=== PATIENT | male | born 1955 | race Caucasian/White ===

== ENCOUNTER 2022-01-09 11:43 | Inpatient (IN) | payer MEDICARE ==
[~2022-01-09] VITALS: Ht 177.8 cm; Wt 76.0 kg
[2022-01-09 12:50] LABS: BASOPHIL 0.6 % (0-2); EOSINOPHIL 1.1 % (0-7); HCT 29.4 % (42.0-52.0); HGB 9.2 g/dl (13.2-18.0); LYMPHOCYTE 23.3 % (15-48); MCH 28.7 pg (25.0-31.0); MCHC 31.3 g/dL (32.0-36.0); MCV 91.6 fL (78.0-100.0); MONOCYTE 10.8 % (0-12); MPV 9.6 fL (6.0-9.5); NRBC 0; PLT 276 K/uL (150-400); RBC 3.21 M/uL (4.70-6.00); RDW 14.6 % (11.5-14.0); WBC 8.2 K/uL (4.0-10.5)
[2022-01-09 13:23] LABS: ALBUMIN 2.8 g/dL (3.4-5.0); BILIRUBIN - TOTAL 0.3 mg/dL (0.2-1.0); BUN/CREAT RATIO (CALC) 29.3 RATIO; CREATININE 0.58 mg/dL (0.67-1.17); FT4 (FREE T4) 1.4 ng/dL (0.76-1.46); GLOBULIN (CALCULATION) 3.7 g/dL; POTASSIUM 3.3 mmol/L (3.5-5.1); TOTAL PROTEIN 6.5 g/dL (6.4-8.2)
[2022-01-09 22:18] LABS: LACTIC ACID 1.8 mmol/L (0.4-1.9)
[2022-01-10] MEDS ORDERED: MONTELUKAST SOD10 MG PO (02:17)
[2022-01-10] MEDS ORDERED: ATORVASTATIN CA20 MG PO (02:17)
[2022-01-10] MEDS ORDERED: CITALOPRAM HBR40 MG PO (02:18)
[2022-01-10] MEDS ORDERED: COZAAR100 MG PO (02:19)
[2022-01-10] MEDS ORDERED: METOPROLOL SUC100 MG PO (02:20)
[2022-01-10] MEDS ORDERED: ENOXAPARIN80 MG/0.8 SC (02:21)
[2022-01-10] MEDS ORDERED: METOPROLOL SUCC25 MG PO (02:23)
[2022-01-10] MEDS ORDERED: MAG-OXIDE 400M400 MG PO (02:25)
[2022-01-10 06:08] LABS: BASOPHIL 0.5 % (0-2); EOSINOPHIL 2.4 % (0-7); HCT 28.4 % (42.0-52.0); HGB 8.9 g/dl (13.2-18.0); LYMPHOCYTE 25.8 % (15-48); MCH 29.1 pg (25.0-31.0); MCHC 31.3 g/dL (32.0-36.0); MCV 92.8 fL (78.0-100.0); MONOCYTE 9.5 % (0-12); MPV 8.8 fL (6.0-9.5); NEUTROPHIL 61.5 % (41-80); NRBC 0; PLT 264 K/uL (150-400); RBC 3.06 M/uL (4.70-6.00); RDW 14.5 % (11.5-14.0); WBC 7.5 K/uL (4.0-10.5)
[2022-01-10 06:14] LABS: RETICULOCYTE COUNT 1.9 % (1.0-2.0)
[2022-01-10 06:20] LABS: INR 3.07 (0.9-1.2); PROTHROMBIN TIME 30.7 SECONDS (11.8-13.4)
[2022-01-10 06:27] LABS: IRON % SATURATION 10.2 %SAT (20-50)
[2022-01-10 06:34] LABS: BUN/CREAT RATIO (CALC) 21.7 RATIO; CREATININE 0.6 mg/dL (0.67-1.17); POTASSIUM 3.4 mmol/L (3.5-5.1)
[2022-01-11 03:35] LABS: BASOPHIL 0.7 % (0-2); EOSINOPHIL 3.4 % (0-7); HCT 29.2 % (42.0-52.0); HGB 9.2 g/dl (13.2-18.0); LYMPHOCYTE 28.8 % (15-48); MCH 29.4 pg (25.0-31.0); MCHC 31.5 g/dL (32.0-36.0); MCV 93.3 fL (78.0-100.0); MONOCYTE 10.7 % (0-12); MPV 9.2 fL (6.0-9.5); NEUTROPHIL 56.3 % (41-80); NRBC 0; PLT 280 K/uL (150-400); RBC 3.13 M/uL (4.70-6.00); RDW 14.5 % (11.5-14.0); WBC 6.8 K/uL (4.0-10.5)
[2022-01-11 04:15] LABS: ALBUMIN 2.6 g/dL (3.4-5.0); BILIRUBIN - TOTAL 0.3 mg/dL (0.2-1.0); BUN/CREAT RATIO (CALC) 20.6 RATIO; CREATININE 0.68 mg/dL (0.67-1.17); GLOBULIN (CALCULATION) 3.7 g/dL; MAGNESIUM 1.9 mg/dL (1.8-2.4); POTASSIUM 3.8 mmol/L (3.5-5.1); TOTAL PROTEIN 6.3 g/dL (6.4-8.2)
[2022-01-11 09:49] LABS: INR 2.65 (0.9-1.2); PROTHROMBIN TIME 27.3 SECONDS (11.8-13.4)
[2022-01-11] MEDS ORDERED: BAYER CHEWABLE81 MG PO (17:11)
[2022-01-11] MEDS ORDERED: MAG-OXIDE 400M400 MG PO (17:12)
[2022-01-12 06:18] LABS: BASOPHIL 0.7 % (0-2); HGB 9.1 g/dl (13.2-18.0); LYMPHOCYTE 32.9 % (15-48); MCH 28.9 pg (25.0-31.0); MCHC 31.4 g/dL (32.0-36.0); MCV 92.1 fL (78.0-100.0); MONOCYTE 8.8 % (0-12); MPV 9.6 fL (6.0-9.5); NEUTROPHIL 54.2 % (41-80); NRBC 0; PLT 282 K/uL (150-400); RBC 3.15 M/uL (4.70-6.00); RDW 14.5 % (11.5-14.0); WBC 7.2 K/uL (4.0-10.5)
[2022-01-12 06:28] LABS: INR 2.61 (0.9-1.2)
[2022-01-12 06:54] LABS: BUN/CREAT RATIO (CALC) 17.9 RATIO; C-REACTIVE PROTEIN 4.6 mg/dL (<=0.90); CREATININE 0.67 mg/dL (0.67-1.17); MAGNESIUM 1.7 mg/dL (1.8-2.4); POTASSIUM 3.7 mmol/L (3.5-5.1)
[2022-01-13 06:58] LABS: INR 2.26 (0.9-1.2); PROTHROMBIN TIME 24.1 SECONDS (11.8-13.4)
[2022-01-13] MEDS ORDERED: FUROSEMIDE 20MG20 MG PO (17:24)
[2022-01-13] MEDS ORDERED: KLOR-CON 1010 MEQ PO (17:24)
[2022-01-13] MEDS ORDERED: WARFARIN SODIUM5 MG PO (17:24)
[2022-01-13] MEDS ORDERED: PANTOPRAZOLE SO40 MG PO (17:24)
[2022-01-13] MEDS ORDERED: POLY-IRON150 MG PO (17:24)
[2022-01-13] MEDS ORDERED: SINGULAIR10 MG PO (17:28)
[2022-01-13] MEDS ORDERED: ACETAMINOPHEN500 M1 PO (17:28)
[2022-01-13] MEDS ORDERED: TOPROL XL 50 MG50 MG PO (17:28)
[2022-01-15 06:34] LABS: BASOPHIL 0.6 % (0-2); EOSINOPHIL 4.8 % (0-7); HCT 29.6 % (42.0-52.0); HGB 9.3 g/dl (13.2-18.0); LYMPHOCYTE 31.6 % (15-48); MCH 28.9 pg (25.0-31.0); MCHC 31.4 g/dL (32.0-36.0); MCV 91.9 fL (78.0-100.0); MONOCYTE 8.1 % (0-12); MPV 9.5 fL (6.0-9.5); NEUTROPHIL 54.5 % (41-80); NRBC 0; PLT 277 K/uL (150-400); RBC 3.22 M/uL (4.70-6.00); RDW 14.4 % (11.5-14.0); WBC 7.8 K/uL (4.0-10.5)
[2022-01-15 06:46] LABS: INR 3.07 (0.9-1.2); PROTHROMBIN TIME 30.7 SECONDS (11.8-13.4)
[2022-01-15 13:20] LABS: BUN/CREAT RATIO (CALC) 19.2 RATIO; C-REACTIVE PROTEIN 1.7 mg/dL (<=0.90); CREATININE 0.78 mg/dL (0.67-1.17)
[2022-01-15] MEDS ORDERED: BACTRIM DS TAB1 EACH PO (14:48)
[2022-01-15] MEDS ORDERED: WARFARIN SODIUM4 MG PO (15:59)
== END 2022-01-15 17:40 | DRG 280 ==
LOC: FER 11:43 → FICU 01-10 00:06 → FTCU 01-10 00:06 → FICU 01-10 00:55 → FTCU 01-10 16:59
PROVIDERS: Emergency Medicine; Family Medicine; Internal Medicine; Internal Medicine Cardiovascular Disease; Nurse Practitioner Acute Care; ADMIT Internal Medicine
DX: I48.91 Unspecified atrial fibrillation (principal); I21.A1 Myocardial infarction type 2; G93.41 Metabolic encephalopathy; I50.33 Acute on chronic diastolic (congestive) heart failure; E44.0 Moderate protein-calorie malnutrition; D62 Acute posthemorrhagic anemia; T87.44 Infection of amputation stump, left lower extremity; Z20.822 Contact with and (suspected) exposure to COVID-19; E87.6 Hypokalemia; Z68.24 Body mass index [BMI] 24.0-24.9, adult; D50.9 Iron deficiency anemia, unspecified; R44.1 Visual hallucinations; R94.31 Abnormal electrocardiogram [ECG] [EKG]; F32.9 Major depressive disorder, single episode, unspecified; I34.0 Nonrheumatic mitral (valve) insufficiency; E78.5 Hyperlipidemia, unspecified; G47.33 Obstructive sleep apnea (adult) (pediatric); I25.10 Atherosclerotic heart disease of native coronary artery without angina pectoris; Z99.3 Dependence on wheelchair; Y83.5 Amputation of limb(s) as the cause of abnormal reaction of the patient, or of later complication, without mention of misadventure at the time of the procedure; Z88.5 Allergy status to narcotic agent; Z79.82 Long term (current) use of aspirin; Z79.899 Other long term (current) drug therapy
CPT/HCPCS: 36415; 71045; 80048; 80053; 82728; 83540; 83550; 83605; 83735; 83880; 84145; 84439; 84443; 84484; 85025; 85379; 85610; 86140; 87040; 93005; 93971; 94010; 94760; 94762; J1170; J2916; J3370; J7050; U0002

== ENCOUNTER 2022-02-10 18:14 | Emergency (ER) | payer MEDICARE ==
[~2022-02-10] VITALS: Ht 177.8 cm; Wt 71.2 kg
[~2022-02-10 18:14] MED LIST: ACETAMINOPHEN500 M1 PO; ATORVASTATIN CA20 MG PO; BACTRIM DS TAB1 EACH PO; BAYER CHEWABLE81 MG PO; CITALOPRAM HBR40 MG PO; COZAAR100 MG PO; ENOXAPARIN80 MG/0.8 SC; FUROSEMIDE 20MG20 MG PO; KLOR-CON 1010 MEQ PO; MAG-OXIDE 400M400 MG PO; METOPROLOL SUC100 MG PO; METOPROLOL SUCC25 MG PO; MONTELUKAST SOD10 MG PO; PANTOPRAZOLE SO40 MG PO; POLY-IRON150 MG PO; SINGULAIR10 MG PO; TOPROL XL 50 MG50 MG PO; WARFARIN SODIUM4 MG PO; WARFARIN SODIUM5 MG PO
[2022-02-10 19:09] LABS: BASOPHIL 0.4 % (0-2); EOSINOPHIL 3.6 % (0-7); HCT 31.9 % (42.0-52.0); HGB 10.3 g/dl (13.2-18.0); LYMPHOCYTE 26.6 % (15-48); MCH 29.2 pg (25.0-31.0); MCHC 32.3 g/dL (32.0-36.0); MCV 90.4 fL (78.0-100.0); MONOCYTE 9.9 % (0-12); MPV 9.3 fL (6.0-9.5); NEUTROPHIL 58.6 % (41-80); NRBC 0; PLT 204 K/uL (150-400); RBC 3.53 M/uL (4.70-6.00); RDW 14.5 % (11.5-14.0)
[2022-02-10 19:30] LABS: ALBUMIN 3.2 g/dL (3.4-5.0); BILIRUBIN - TOTAL 0.5 mg/dL (0.2-1.0); BUN/CREAT RATIO (CALC) 25.8 RATIO; CREATININE 0.62 mg/dL (0.67-1.17); POTASSIUM 4.4 mmol/L (3.5-5.1); TOTAL PROTEIN 6.2 g/dL (6.4-8.2)
[2022-02-11 01:04] LABS: BILIRUBIN NEGATIVE (NEGATIVE); BLOOD NEGATIVE Ery/uL (NEGATIVE); CLARITY CLEAR (CLEAR); COLOR YELLOW (YELLOW); GLUCOSE (U) NORMAL (NORMAL); LEUKOCYTES NEGATIVE Leu/uL (NEGATIVE); NITRITE NEGATIVE (NEGATIVE); PROTEIN NEGATIVE (NEGATIVE); UROBILINOGEN 0.2 mg/dL (0.2-1.0)
[2022-02-11 01:12] LABS: AMPHETAMINES NEGATIVE (NEGATIVE); BARBITURATES NEGATIVE (NEGATIVE); ECSTASY (MDMA) NEGATIVE (NEGATIVE); MARIJUANA (THC) NEGATIVE (NEGATIVE); METHADONE NEGATIVE (NEGATIVE); OPIATES NEGATIVE (NEGATIVE); OXYCODONE NEGATIVE (NEGATIVE)
== END 2022-02-11 01:45 | disposition home or self-care (01) ==
LOC: FER 18:14
PROVIDERS: Emergency Medicine
DX: R41.0 Disorientation, unspecified (principal); I10 Essential (primary) hypertension; Z88.6 Allergy status to analgesic agent
CPT/HCPCS: 36415; 36600; 70450; 71045; 80053; 80305; 81003; 82140; 82803; 84145; 85025; 93005